=== PATIENT | female | born 1985 | race Caucasian/White ===

== ENCOUNTER 2019-06-21 02:34 | Emergency (ER) | payer MEDICAID ==
[~2019-06-21] VITALS: Ht 170.2 cm; Wt 64.9 kg
[2019-06-21 03:15] LABS: Urine Bacteria MOD /hpf (None Seen); Urine Blood TRACE /uL (Negative); Urine Mucus FEW (None Seen); Urine Specific Gravity 1.019 (1.001-1.035); Urine WBC 1992 /hpf (0 - 5); Urine WBC Clumps PRESENT /hpf (None Seen)
[2019-06-21 04:37] VITALS: BP 116/68
[2019-06-21] MEDS ORDERED: PHENAZOPYRIDINE HCL 100 MG TAB PO ONE (05:00)
[2019-06-21] MEDS ORDERED: cefTRIAXone SOD 1,000 MG VL IM ONE (05:00)
[2019-06-21] MEDS ORDERED: ACETAMINOPHEN/CODEINE#3 (300/30mg) TAB PO ONE (05:00)
== END 2019-06-21 05:23 | disposition home or self-care (01) ==
LOC: ER 02:37
DX: N39.0 Urinary tract infection, site not specified (principal)
CPT/HCPCS: 81001; 96372; 99283; J0696

== ENCOUNTER 2023-02-01 03:42 | Emergency (ER) | payer MEDICAID ==
[~2023-02-01] VITALS: Ht 170.2 cm; Wt 75.0 kg
[2023-02-01] MEDS ORDERED: SODIUM CHLORIDE 0.9% 1,000 ML IV ONE (04:30)
[2023-02-01] MEDS ORDERED: ATROPINE SULF 1 MG/10ml SYR IV ONE (04:30)
[2023-02-01] MEDS ORDERED: ONDANSETRON HCL 4 MG/2 ML VIAL IV ONE (04:30)
[2023-02-01] MEDS ORDERED: HYDROmorphone HCL 2 MG/ML VL/or syr IV ONE (05:15)
[2023-02-01 05:35] LABS: Basophils # (auto) 0 10 ^3/uL (0-0.2); Basophils % (auto) 0.4 % (0.0-2.0); Eosinophils # (auto) 0 10 ^3/uL (0-0.8); Hematocrit 38.4 % (36.0-46.0); Hemoglobin 12.7 g/dL (12.2-16.2); Lymphocytes # (auto) 1.1 10 ^3/uL (0.4-5.4); Lymphocytes % (auto) 8.6 % (10.0-50.0); Mean Corpuscular Hemoglobin 32.1 pg (28.0-32.0); Mean Corpuscular Hgb Conc. 33.2 g/dL (32.0-36.0); Mean Corpuscular Volume 96.7 fL (80.0-100.0); Monocytes # (auto) 0.4 10 ^3/uL (0-1.3); Monocytes % (auto) 2.8 % (0.0-12.0); Neutrophils # (auto) 11.4 10 ^3/uL (1.6-8.6); Neutrophils % (auto) 88.2 % (37.0-80.0); Red Blood Cells 3.97 10^6/uL (4.0-5.20); Red Cell Distribution Width 13.7 % (11.8-14.3)
[2023-02-01 05:58] LABS: Potassium 4.4 mmol/L (3.5-5.1)
[2023-02-01 06:07] LABS: Albumin 4.2 g/dL (3.4-5.0); BUN/Creatinine Ratio 13.5 (10.0-20.0); Bilirubin, Total 0.4 mg/dL (0.2-1.0); Calcium 8.8 mg/dL (8.5-10.1); Total Protein 7.3 g/dL (6.4-8.2)
[2023-02-01] MEDS ORDERED: ZOFR4T PO (06:25)
[2023-02-01] MEDS ORDERED: CIPR-173 PO (06:25)
[2023-02-01] MEDS ORDERED: PERCOT PO (06:25)
[2023-02-01] MEDS ORDERED: CIPROFLOXACIN HCL 500 MG TAB PO ONE (06:30)
[2023-02-01 07:08] VITALS: BP 111/66
== END 2023-02-01 07:18 | disposition home or self-care (01) ==
LOC: ER 03:42
DX: K52.9 Noninfective gastroenteritis and colitis, unspecified (principal); R00.1 Bradycardia, unspecified; R11.10 Vomiting, unspecified
CPT/HCPCS: 36415; 71045; 74176; 80053; 84484; 85025; 93005; 96361; 96374; 96375; 99285; J1170; J2405; J7030

== ENCOUNTER 2023-05-14 07:25 | Emergency (ER) | payer MEDICAID ==
[~2023-05-14] VITALS: Ht 167.6 cm; Wt 73.0 kg
[~2023-05-14 07:25] MED LIST: CIPR-173 PO; PERCOT PO; ZOFR4T PO
[2023-05-14] MEDS ORDERED: PROCHLORPERAZINE EDISYLATE 5 MG/ML 2ML VIAL IV ONE (07:45)
[2023-05-14] MEDS ORDERED: SODIUM CHLORIDE 0.9% 1,000 ML IVB ONE (07:45)
[2023-05-14] MEDS ORDERED: PANTOPRAZOLE 40 MG/10 ML VIAL INJ IV ONE (07:45)
[2023-05-14] MEDS ORDERED: MORPHINE SULFATE 4 MG/ML SYR/VIAL IV ONE (07:45)
[2023-05-14 08:07] LABS: Basophils # (auto) 0 10 ^3/uL (0-0.2); Basophils % (auto) 0.3 % (0.0-2.0); Eosinophils # (auto) 0.1 10 ^3/uL (0-0.8); Eosinophils % (auto) 0.4 % (0.0-7.0); Hematocrit 37.2 % (36.0-46.0); Hemoglobin 12.4 g/dL (12.2-16.2); Lymphocytes # (auto) 1.5 10 ^3/uL (0.4-5.4); Lymphocytes % (auto) 12.2 % (10.0-50.0); Mean Corpuscular Hemoglobin 32.2 pg (28.0-32.0); Mean Corpuscular Hgb Conc. 33.4 g/dL (32.0-36.0); Mean Corpuscular Volume 96.3 fL (80.0-100.0); Monocytes # (auto) 0.5 10 ^3/uL (0-1.3); Monocytes % (auto) 4.4 % (0.0-12.0); Neutrophils # (auto) 10.3 10 ^3/uL (1.6-8.6); Neutrophils % (auto) 82.7 % (37.0-80.0); Red Blood Cells 3.86 10^6/uL (4.0-5.20); Red Cell Distribution Width 13.4 % (11.8-14.3); White Blood Cell 12.4 10^3/uL (4.4-10.8)
[2023-05-14 08:38] VITALS: TEMP 98.4
[2023-05-14 09:19] LABS: Alanine Aminotransferase 15 U/L (7-40); Albumin 4.5 g/dL (3.2-4.8); Alkaline Phosphatase 61 U/L (46-116); Anion Gap 10 (5-15); Aspartate Aminotransferase 15 U/L (13-40); BUN/Creatinine Ratio 14.6 (10.0-20.0); Blood Urea Nitrogen 13 mg/dL (9-23); Calcium 9.3 mg/dL (8.7-10.4); Carbon Dioxide 18 mmol/L (20-30); Chloride 112 mmol/L (98-107); Glucose 139 mg/dL (74-106); Potassium 4.3 mmol/L (3.5-5.1); Sodium 140 mmol/L (136-145)
[2023-05-14 09:20] LABS: Bilirubin, Total 0.4 mg/dL (0.2-1.0); Total Protein 6.5 g/dL (5.7-8.2)
[2023-05-14 09:26] LABS: Lipase 46 U/L (12-53)
[2023-05-14] MEDS ORDERED: PANT40TA2 PO (09:30)
[2023-05-14] MEDS ORDERED: ZOFR4T PO (09:30)
[2023-05-14 09:49] VITALS: BP 144/81; PULSE 72; RESP 21; O2SAT 100
== END 2023-05-14 09:56 | disposition home or self-care (01) ==
LOC: EDBD 07:25 → ER 07:25
DX: R11.2 Nausea with vomiting, unspecified (principal); R10.2 Pelvic and perineal pain; R10.13 Epigastric pain; F17.210 Nicotine dependence, cigarettes, uncomplicated; Z79.2 Long term (current) use of antibiotics; Z79.899 Other long term (current) drug therapy
CPT/HCPCS: 36415; 76705; 80053; 82962; 83690; 84702; 85025; 96361; 96374; 96375; 99285; C9113; J0780; J2270; J7030